=== PATIENT | male | born 1960 | race Caucasian/White ===

== ENCOUNTER 2020-01-18 | Emergency (ER) | payer MEDICARE | END 2020-01-18 22:26 | disposition home or self-care (01) ==

== ENCOUNTER 2020-05-20 16:23 | Observation (INO) | payer MEDICARE ==
[2020-05-20] MEDS ORDERED: SODIUM CHLORIDE 0.9% (FLUSH) 10 ML SYG IV PRN ×3 (16:46→22:33)
[2020-05-20] MEDS ORDERED: cefTRIAXone SODIUM 2 GM in SODIUM CHL 0.9% 100ML MINI-BAG 100 ML IVPB ONE (16:46)
[2020-05-20] MEDS ORDERED: SODIUM CHLORIDE 0.9% 1000ML 1,000 ML IVS ONE (16:46)
--- NOTE | 2020-05-20 16:56 | ED.PDOC ---
History of Present Illness - General Chief Complaint: General Stated Complaint: weakness Time Seen by Provider: 05/20/20 16:45 Source: patient, family Exam Limitations: no limitations - History of Present Illness Initial Comments: 59 y/o male c/o legs giving out on him twice today. He got groceries out of the car and then sat down in his house. After 30 min or so he got up and felt his legs giving way. He did not fall but when he tried to take a few more steps it happened again. He has a hx of hypertension but did not take his metoprolol this am. Denies fever, chest pain, or SOB. Timing/Duration: 1-3 hours Severity: moderate Improving Factors: rest Worsening Factors: movement Associated Symptoms: weakness Allergies/Adverse Reactions: Allergies Morphine Allergy (Verified 05/20/20 23:08) Penicillins Allergy (Verified 05/20/20 23:08) Home Medications: Ambulatory Orders Lisinopril 40 mg PO BID 01/18/20 HYDROcodone 10MG/APAP 325MG [[place] 10/325] 1 - 2 tab PO TID PRN 05/20/20 Metoprolol Succinate [Metoprolol Succinate ER] 100 mg PO BID 05/20/20 Quetiapine Fumarate 300 mg PO BEDTIME 05/20/20 Temazepam 30 mg PO BEDTIME 05/20/20 Review of Systems - Review of Systems Constitutional: States: no symptoms reported EENTM: States: no symptoms reported Respiratory: States: no symptoms reported Cardiology: States: no symptoms reported Gastrointestinal/Abdominal: States: no symptoms reported Genitourinary: States: no symptoms reported Musculoskeletal: States: no symptoms reported Skin: States: no symptoms reported Neurological: States: no symptoms reported, weakness Endocrine: States: no symptoms reported Hematologic/Lymphatic: States: no symptoms reported Past Medical History (General) - Patient Medical History Hx Seizures: No Hx Stroke: No Hx Asthma: No Hx of COPD: No Hx Cardiac Disorders: No Hx Congestive Heart Failure: No Hx Pacemaker: No Hx Hypertension: Yes Hx Diabetes: No Hx MRSA: No - Social History Hx Alcohol Use: Yes - 6 OZ LIQUOR 3 TIMES A WEEK Hx Substance Use: No Hx Physical Abuse: No Hx Emotional Abuse: No Family Medical History - Family History Father Family History: Unknown Physical Exam - Physical Exam General Appearance: Alert Eye Exam: bilateral normal Ears, Nose, Throat: normal ENT inspection Neck: non-tender, full range of motion, supple Respiratory: chest non-tender, lungs clear, normal breath sounds, no respiratory distress Cardiovascular/Chest: regular rate, rhythm, no murmur Gastrointestinal/Abdominal: normal bowel sounds, non tender, soft, no organomegaly Back Exam: normal inspection, no vertebral tenderness Extremity: normal range of motion, non-tender, no pedal edema 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, no motor/sensory deficits, alert, normal mood/affect, oriented x 3 Skin Exam: normal color, warm/dry Progress - EKG/XRAY/CT EKG: Sinus, no ST T wave changes Comments: Normal EKG Rate 86 Departure - Departure Clinical Impression: Severe sepsis Anemia Qualifiers: Anemia type: unspecified type Qualified Code(s): D64.9 - Anemia, unspecified Disposition: Admit Patient Condition: Fair Home Medications: Ambulatory Orders Lisinopril 40 mg PO BID 01/18/20 HYDROcodone 10MG/APAP 325MG [[place] 10/325] 1 - 2 tab PO TID PRN 05/20/20 Metoprolol Succinate [Metoprolol Succinate ER] 100 mg PO BID 05/20/20 Quetiapine Fumarate 300 mg PO BEDTIME 05/20/20 Temazepam 30 mg PO BEDTIME 05/20/20
--- NOTE | 2020-05-20 17:15 | RAD ---
EXAM DESCRIPTION: Chest,1 View CLINICAL HISTORY: 59 years Male hypotension COMPARISON: 01/18/2020 FINDINGS: The cardiomediastinal silhouette appears unremarkable. No consolidating infiltrates or pleural effusions. No pneumothorax. Previous ORIF of multiple ribs on the right similar to the previous. Mild elevation of the right hemidiaphragm. IMPRESSION: No acute abnormality is identified. Electronically signed by: Buffy Stiles MD 05/20/2020 5:14 PM CDT
[2020-05-20] MEDS ORDERED: SODIUM CHLORIDE 0.9% 1000ML 2,000 ML IVS ONE (18:12)
[2020-05-20] MEDS ORDERED: SODIUM CHLORIDE 0.9% 1000ML 1,000 ML IVS PRN (19:23)
[2020-05-20] MEDS ORDERED: ONDANSETRON INJ 4 MG/2 ML VIAL IV ONE (19:29)
[2020-05-20] MEDS ORDERED: MORPHINE SULFATE INJ 10 MG/ML VIAL IV ONE (19:29)
[2020-05-20] MEDS ORDERED: TETANUS,DIPHTHERIA,PERTUSSIS 1 EA SYG IM ONE (19:30)
[2020-05-20] MEDS ORDERED: ACETAMINOPHEN 325 MG TAB PO PRN (22:33)
[2020-05-20] MEDS ORDERED: ONDANSETRON INJ 4 MG/2 ML VIAL IV PRN (22:33)
[2020-05-20] MEDS ORDERED: KCL 20MEQ/0.45% NS 1,000 ML IVS ONE (22:45)
[2020-05-20] MEDS ORDERED: IV SET AND CAP CHANGE INJ INJ SCH (23:00)
[2020-05-20] MEDS ORDERED: NON-FORMULARY MEDICATION 1 EA MIS (Temazepam [Temazepam] 30 MG) PO SCH (23:24)
[2020-05-21] MEDS ORDERED: TEMAZEPAM 15 MG CAP ONE (00:44)
[2020-05-21] MEDS: HYDROcodone 10MG/APAP 325MG 1 EA TAB PO PRN ×2 (04:30→12:19)
[2020-05-21 06:52] VITALS: TEMP 98.2
[2020-05-21] MEDS ORDERED: PANTOPRAZOLE SODIUM TAB 40 MG PO SCH (07:00)
[2020-05-21 10:11] VITALS: BP 135/74; O2SAT 97
--- NOTE | 2020-05-21 10:32 | RAD ---
XR CHEST 1 VIEW CLINICAL STATEMENT: syncope COMPARISON: 05/20/2020 FINDINGS: Heart is mildly enlarged. There is no focal lung consolidation or pleural effusion. No evidence of pulmonary edema or pneumothorax. Right rib postsurgical changes noted. IMPRESSION: No acute cardiopulmonary disease. Electronically signed by: Deni Cota MD 05/21/2020 10:30 AM CDT
--- NOTE | 2020-05-21 10:44 | CT ---
Sex: Male. : 1960. Technique: Axial scans through the pelvis without intravenous contrast including multiplanar computer reformations. Total Dose Length Product: 546. This exam was performed according to our departmental dose-optimization program, which includes automated exposure control, adjustment of the mA and/or kV according to patient size and/or use of iterative reconstruction technique. Comparison studies: CT scan June 16, 2013. Clinical history: history of colon cancer and abdominal pain. Findings: Scan volume includes the lower abdomen. Visible portions of the liver and spleen, pancreas, adrenal glands and kidneys are unremarkable. No evidence for large bowel or small bowel dilatation or obstruction. There are small bowel air-fluid levels likely signifying the presence of an ileus or enteritis. A small bowel anastomosis seen on series 2 image 34. Correlate with the surgical history. There is pericecal and infracecal stranding extending down to the surface of the right psoas muscle indicating right lower quadrant inflammation. For example on series 2 images 18-35 and series 301 image 97. The appendix is not well visualized-correlate clinically if there is any concern for appendicitis. No evidence for mass or free fluid otherwise. No retroperitoneal adenopathy. There is a fat-containing 2.9 cm left inguinal hernia. 10 mm fat-containing periumbilical ventral hernia. Urinary bladder is unremarkable. No wall thickening. No intraluminal or intramural gas. The prostate is within normal limits and measures 4 cm. Normal seminal vesicles. No perirectal or perineal soft tissue abnormality. Degenerative spondylosis seen in the lower lumbar spine. There has been a lumbar laminectomy and fusion. The hip and sacroiliac joints are unremarkable. Impression: 1. Right lower quadrant inflammation. 2. Small bowel fluid levels potentially representing ileus or enteritis. Small bowel anastomosis is noted. No evidence for obstruction. 3. 2.9 cm left inguinal hernia and a 10 mm periumbilical hernia. 4. Atherosclerosis. Electronically signed by: Suman Hammer MD 05/21/2020 10:42 AM CDT
[2020-05-21] MEDS ORDERED: MAGNESIUM SULFATE PREMIX 2GM 2 GM in PREMIX BAG 1 BAG IVPB ONE (12:16)
[2020-05-21] MEDS ORDERED: MAGNESIUM SULFATE PREMIX 2GM 50 ML IVPB ONE (12:21)
--- NOTE | 2020-05-21 14:47 | SSS ---
SUPERVISING PHYSICIAN: Faheem Phillips M.D. DISCHARGE DIAGNOSES: 1. Dehydration with rigors. 2. Acute kidney injury. 3. Anemia. 4. Hypertension. 5. History of colon cancer. HISTORY OF PRESENT ILLNESS: This is a 59 year-old male patient who went to burr picker his ex- in [place] on 05/18/20. He drove out and came back, spent the night [place] one night. He had very little fluid intake and was in and out of the car and heat. When he got home to [place], he was trying to get out of his house and his legs gave out twice. He did not actually fall, but he was unable to walk due to the weakness in his lower extremities. He managed to get to his sister's care who brought him to the Emergency Room. In the Emergency Room, his initial vital signs showed a temperature of 97.3 with a heart rate of 90, blood pressure 63/37, respiratory rate 28 and O2 saturation of 97%. He was started on fluids and his lab studies came back showing a WBC of 6,700 with hemoglobin 11.1 and hematocrit 32.5. He did have a slight left shift on his differential. Coagulation studies were within normal limits, including a D- dimer of less than 131. Electrolytes were basically within normal limits. BUN was 21, creatinine 1.91, baseline creatinine is about 0.7. He did have a creatinine kinase of 215 but his other cardiac enzymes were negative. Liver enzymes were negative. Urinalysis was unremarkable. Blood cultures and urine culture were obtained. Chest x-ray showed no acute abnormality identified. He was given several liters of fluids in the Emergency Room as well as some Rocephin and Zofran. There was no temperature noted during his stay in the Emergency Room, but he was tested for COVID-19. Those results are pending. I was called for hospital admission. PAST MEDICAL HISTORY: 1. Hypertension. 2. Gastroesophageal reflux disease. 3. Colon cancer. PAST SURGICAL HISTORY: 1. Abdominal surgery times three for his colon cancer. 2. Left wrist surgery. 3. Appendectomy. OUTPATIENT MEDICATIONS: 1. Metoprolol. 2. Lisinopril. 3. Quetiapine. 4. Hydrocodone. 5. Restoril. ALLERGIES: MORPHINE AND PENICILLIN. SOCIAL HISTORY: He is . He lives in [place]. He denies smoking or illicit drug use. He drinks alcohol on a social basis only. REVIEW OF SYSTEMS: GENERAL: Negative for fatigue, fever or weight changes. HEENT: Negative for sinus symptoms, ear pain, vision changes or sore throat. RESPIRATORY: Negative for wheezing, coughing or shortness of breath. CARDIAC: Negative for chest pain, palpitations or tachycardia. GASTROINTESTINAL: Negative for abdominal pain, nausea, vomiting, diarrhea or constipation. GENITOURINARY: Negative for hematuria, dysuria or polyuria. SKIN: Negative for lesions or rashes. MUSCULOSKELETAL: As per the history of present illness. NEUROLOGIC: Positive for weakness. Negative for headaches or seizures. PHYSICAL EXAMINATION: VITAL SIGNS: Temperature 98.2, heart rate 88, blood pressure 135/74, respiratory rate 18, O2 saturation 97% on room air. GENERAL: This is a 59 year-old obese male lying in his hospital bed. He is in no acute distress. HEENT: Normocephalic, atraumatic. Pupils are equal and reactive. Oropharynx is clear. NECK: Supple without mass. RESPIRATORY: Essentially clear to auscultation bilaterally. CHEST: There is equal rise and fall of the chest with inspiration and expiration. CARDIOVASCULAR: Regular rate and rhythm. GASTROINTESTINAL: Abdomen is soft, nondistended, nontender. Bowel sounds are positive. EXTREMITIES: No cyanosis, clubbing or edema. BACK: Exam is deferred. GENITOURINARY: Deferred. NEUROLOGIC: Awake, alert and oriented times three. Cranial nerves II-XII are grossly intact as tested. SKIN: Warm and dry. FOLLOWUP LABORATORY: Show WBCs of 6,000 with hemoglobin and hematocrit of 10.6 and 31. Sodium 138, potassium 4, chloride 109, carbon dioxide 20, BUN 21, creatinine 1.35. Lactate in the Emergency Room was 3.5. After fluids it came down to 1.6. Calcium is 7.8, magnesium was 1.7. Liver enzymes were within normal limits. Blood cultures and urine culture are pending. Chest x-ray this morning showed no acute cardiopulmonary disease. Abdominal pelvis CT was obtained this morning due to his history and it shows: 1. Right lower quadrant inflammation. 2. Small bowel fluid level potentially representing ileus or enteritis. Small bowel anastomosis is noted. No evidence for obstruction. 3. 2.9 cm left inguinal hernia and a 10 mm periumbilical hernia. 4. Atherosclerosis. HOSPITAL COURSE: The patient received fluids overnight as well as some magnesium supplementation this morning. His home medications were restarted with the exception of his metoprolol and lisinopril. He was able to get up and walk around in his room without problems. He has denied any kind of abdominal pain or discomfort. We did discuss that he would need to see Dr. Medrano and maybe followup with his oncologist at some point due to his anemia. He also will need to followup with Dr. Medrano about his abdominal CT scan. He did say that he was to have a colonoscopy done by Dr. Medrano in the next 2 to 3 weeks. DISCHARGE PLAN: The patient will be discharged home in stable condition. As stated above, he will need to followup with Dr. Cheng Medrano and call his office on Friday for a followup appointment. It is recommended that he see his airport operations specialist for an anemia workup and that a further workup based on his CT exam results may be beneficial. He is to resume his previous medications. He will go home on no new additional medications. He is to increase his activity as tolerated. He is to return to the hospital or followup with Dr. Medrano for any problems or complications. DISCHARGED MEDICATIONS: 1. Lisinopril. 2. Quetiapine. 3. Metoprolol. 4. Temazepam. 5. Hydrocodone. #[id number] [facility]
[2020-05-21] MEDS ORDERED: SODIUM CHLORIDE 0.9% (FLUSH) 10 ML SYG IV SCH (21:00)
[2020-05-21] MEDS ORDERED: TEMAZEPAM 15 MG CAP PO SCH (21:00)
== END 2020-05-21 13:55 | disposition home or self-care (01) ==
LOC: ER 16:23 → MS 22:27
PROVIDERS: ADMIT Nurse Practitioner Acute Care; ATTEND Nurse Practitioner Acute Care
DX: E86.0 Dehydration (principal); R68.89 Other general symptoms and signs; N17.9 Acute kidney failure, unspecified; D64.9 Anemia, unspecified; I10 Essential (primary) hypertension; R53.1 Weakness; Z11.59 Encounter for screening for other viral diseases; Z79.899 Other long term (current) drug therapy; Z88.0 Allergy status to penicillin; Z88.6 Allergy status to analgesic agent; Z85.038 Personal history of other malignant neoplasm of large intestine
CPT/HCPCS: 96361; 96366 ×2; 96367 ×2; 96365; J0696; J7030 ×2; A4216; J3475; J3480; J7050; 85379; 82553; 80053 ×2; 87086; 36415 ×3; 81001 ×2; 85025 ×2; 82550; 87040 ×2; 83735; 85730; 85610; 84484; 83605 ×2; 71045 ×2; 72192; 94760; 99285; 93005 ×2; G0378; U0002

== ENCOUNTER 2020-05-22 11:59 | Emergency (ER) | payer MEDICARE ==
[2020-05-22] MEDS ORDERED: levoFLOXacin 500 MG TAB PO ONE (14:56)
--- NOTE | 2020-05-22 14:59 | ED.PDOC ---
History of Present Illness - General Chief Complaint: General Time Seen by Provider: 05/22/20 12:06 Source: patient Exam Limitations: no limitations - History of Present Illness Initial Comments: The patient is a 59-year-old male presented emergency room secondary to feeling like his heart rate was going too fast morning. The patient reports that initially when he woke up he had a blood pressure in the systolic and in the 90s and his blood pressure machine reported his heart rate in the 140s. The patient was recently admitted for hypotension with acute renal failure from dehydration. He apparently tested negative on our in-house system for coronavirus. The patient is currently feeling fine. His temperature is mildly elevated at 100.3. He denies coronavirus exposure. No abdominal pain. No nausea or vomiting. The patient did restart his blood pressure medications this morning. Timing/Duration: momentarily Severity: mild Improving Factors: nothing Worsening Factors: nothing Associated Symptoms: malaise Allergies/Adverse Reactions: Allergies Morphine Allergy (Verified 05/20/20 23:08) Penicillins Allergy (Verified 05/20/20 23:08) Home Medications: Ambulatory Orders Lisinopril 40 mg PO BID 01/18/20 HYDROcodone 10MG/APAP 325MG [[place] 10/325] 1 - 2 tab PO TID PRN 05/20/20 Metoprolol Succinate [Metoprolol Succinate ER] 100 mg PO BID 05/20/20 Quetiapine Fumarate 300 mg PO BEDTIME 05/20/20 Temazepam 30 mg PO BEDTIME 05/20/20 levoFLOXacin [Levaquin] 500 mg PO DAILY #5 tab 05/22/20 Review of Systems - Review of Systems Constitutional: States: malaise EENTM: States: no symptoms reported Respiratory: States: no symptoms reported Cardiology: States: no symptoms reported Gastrointestinal/Abdominal: States: no symptoms reported Genitourinary: States: no symptoms reported Musculoskeletal: States: no symptoms reported Skin: States: no symptoms reported Neurological: States: no symptoms reported Endocrine: States: flushing Hematologic/Lymphatic: States: no symptoms reported All other Systems: No Change from Baseline Past Medical History (General) - Patient Medical History Hx Seizures: No Hx Stroke: No Hx Asthma: No Hx of COPD: No Hx Cardiac Disorders: No Hx Congestive Heart Failure: No Hx Pacemaker: No Hx Hypertension: Yes Hx Diabetes: No Hx Cancer: Yes Hx Hepatitis C: No Hx MRSA: No - Vaccination History Hx Influenza Vaccination: Yes - Social History Hx Tobacco Use: No Hx Alcohol Use: Yes - 6 OZ LIQUOR 3 TIMES A WEEK Hx Substance Use: No Hx Physical Abuse: No Hx Emotional Abuse: No Family Medical History - Family History Father Family History: Unknown Hx Family;Other: mother and father - cancer Physical Exam - Physical Exam General Appearance: Alert, Comfortable, No apparent distress Eye Exam: bilateral normal Ears, Nose, Throat: hearing grossly normal, normal ENT inspection Neck: full range of motion, supple Respiratory: lungs clear, normal breath sounds, no respiratory distress, no accessory muscle use Cardiovascular/Chest: normal peripheral pulses, regular rate, rhythm, no edema Peripheral Pulses: radial,right: 2+, radial,left: 2+ Gastrointestinal/Abdominal: non tender, soft Rectal Exam: deferred Back Exam: no CVA tenderness, no vertebral tenderness Extremity: non-tender, normal inspection, no pedal edema, normal capillary refill 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 The patient may need to obtain a new blood pressure cuff. Also obtaining a pulse oximeter may be useful. The patient has been monitored on telemetry monitoring here and has shown no evidence of any arrhythmia and no evidence of any hypotension here today. Given the patient's recent history however, I would recommend that the patient hold his lisinopril for 2 weeks. He can continue the metoprolol for now. Given the mild temperature elevation here as well as a CT scan findings of mild right lower quadrant inflammation from 2 days ago, I am going to place the patient on Levaquin daily for the next 5 days. He needs to keep himself well- hydrated. I do want him to follow back up with his primary care doctor in 2 to 3 days. ER warnings are given. [email or web address] massey [id number] - Results/Orders Results/Orders: Laboratory Tests 0705/22/20 05/22/20 13:30 13:30 13:30 WBC 5.0 RBC 3.45 L Hgb 10.4 L Hct 30.9 L MCV 89.6 MCH 30.1 MCHC 33.6 RDW 15.6 H Plt Count 180 MPV 8.6 Absolute Neuts (auto) 3.40 Absolute Lymphs (auto) 0.80 L Absolute Monos (auto) 0.40 Absolute Eos (auto) 0.20 Absolute Basos (auto) 0.10 Neutrophils % 68.9 Lymphocytes % 16.4 L Monocytes % 8.4 Eosinophils % 4.7 Basophils % 1.6 Sodium 137 Potassium 3.8 Chloride 109 Carbon Dioxide 22 Anion Gap 9.8 L BUN 14 Creatinine 0.91 BUN/Creatinine Ratio 15.4 Random Glucose 137 H D Serum Osmolality 276.4 Lactic Acid 0.9 Calcium 8.2 L Total Bilirubin 0.6 AST 22 ALT 21 Alkaline Phosphatase 55 Creatine Kinase 157 CK-MB (CK-2) 2.8 CK-MB (CK-2) % Not Reportable Troponin I < 0.02 B-Natriuretic Peptide 41.4 Serum Total Protein 6.4 Albumin 3.3 Globulin 3.1 Albumin/Globulin Ratio 1.1 TSH 1.54 Departure - Departure Clinical Impression: Hypotension due to medication Disposition: Discharge to Home or Self Care Condition: Fair Departure Forms: ED Discharge - Pt. Copy, Patient Portal Self Enrollment Diet: bland diet Activity: increase activity as tolerated Referrals: JOCELIN CRAIG [Primary Care Provider] - 1-2 Weeks Prescriptions: levoFLOXacin [Levaquin] 500 mg PO DAILY #5 tab Home Medications: Ambulatory Orders Lisinopril 40 mg PO BID 01/18/20 HYDROcodone 10MG/APAP 325MG [[place] 10/325] 1 - 2 tab PO TID PRN 05/20/20 Metoprolol Succinate [Metoprolol Succinate ER] 100 mg PO BID 05/20/20 Quetiapine Fumarate 300 mg PO BEDTIME 05/20/20 Temazepam 30 mg PO BEDTIME 05/20/20 levoFLOXacin [Levaquin] 500 mg PO DAILY #5 tab 05/22/20 Additional Instructions: The patient is a 59-year-old male presented emergency room secondary to a questionable set of vital signs obtained this morning. The patient may need to obtain a new blood pressure cuff. Also obtaining a pulse oximeter may be useful. The patient has been monitored on telemetry monitoring here and has shown no evidence of any arrhythmia and no evidence of any hypotension here today. Given the patient's recent history however, I would recommend that the patient hold his lisinopril for 2 weeks. He can continue the metoprolol for now. Given the mild temperature elevation here as well as a CT scan findings of mild right lower quadrant inflammation from 2 days ago, I am going to place the patient on Levaquin daily for the next 5 days. He needs to keep himself well- hydrated. I do want him to follow back up with his primary care doctor in 2 to 3 days. ER warnings are given.
[2020-05-22 15:46] VITALS: TEMP 100.1; O2SAT 97
[2020-05-22 15:48] VITALS: BP 118/76
== END 2020-05-22 15:25 | disposition home or self-care (01) ==
LOC: ER 11:59
DX: I95.2 Hypotension due to drugs (principal); I10 Essential (primary) hypertension; T46.4X5A Adverse effect of angiotensin-converting-enzyme inhibitors, initial encounter; Y92.9 Unspecified place or not applicable

== ENCOUNTER 2020-05-29 11:56 | Emergency (ER) | payer MEDICARE ==
--- NOTE | 2020-05-29 12:17 | ED.PDOC ---
History of Present Illness - General Chief Complaint: Chest Pain/CT Stated Complaint: chest pain Time Seen by Provider: 05/29/20 12:00 Source: patient Exam Limitations: no limitations - History of Present Illness Initial Comments: The patient is a 59-year-old male presented emergency room secondary to concern over elevated blood pressure this morning. The patient recording his blood pressures with a wrist cuff. He was feeling fine when he took his blood pressure this morning but became anxious when he gave a high reading. More anxious he got, the higher the readings were in the more short of breath he felt. The patient is anxious upon arrival here however upon seeing a normal blood pressure here he is no longer short of breath. On comparing his blood pressure cuff to our blood pressure cuff, his cuff is measuring 40-50 points higher than what is real. The patient is asymptomatic at this time. Timing/Duration: 4-6 hours Severity: mild Improving Factors: nothing Worsening Factors: nothing Associated Symptoms: shortness of breath Allergies/Adverse Reactions: Allergies Morphine Allergy (Verified 05/20/20 23:08) Penicillins Allergy (Verified 05/20/20 23:08) Home Medications: Ambulatory Orders Lisinopril 40 mg PO BID 01/18/20 HYDROcodone 10MG/APAP 325MG [[place] 10/325] 1 - 2 tab PO TID PRN 05/20/20 Metoprolol Succinate [Metoprolol Succinate ER] 100 mg PO BID 05/20/20 Quetiapine Fumarate 300 mg PO BEDTIME 05/20/20 Temazepam 30 mg PO BEDTIME 05/20/20 levoFLOXacin [Levaquin] 500 mg PO DAILY #5 tab 05/22/20 Review of Systems - Review of Systems Constitutional: States: no symptoms reported EENTM: States: no symptoms reported Respiratory: States: see HPI Cardiology: States: no symptoms reported Gastrointestinal/Abdominal: States: no symptoms reported Genitourinary: States: no symptoms reported Musculoskeletal: States: no symptoms reported Skin: States: no symptoms reported Neurological: States: see HPI, anxiety Endocrine: States: no symptoms reported All other Systems: No Change from Baseline Past Medical History (General) - Patient Medical History Hx Seizures: No Hx Stroke: No Hx Asthma: No Hx of COPD: No Hx Cardiac Disorders: No Hx Congestive Heart Failure: No Hx Pacemaker: No Hx Hypertension: Yes Hx Diabetes: No Hx Cancer: Yes Hx Hepatitis C: No Hx MRSA: No - Vaccination History Hx Influenza Vaccination: Yes - Social History Hx Tobacco Use: No Hx Alcohol Use: Yes - 6 OZ LIQUOR 3 TIMES A WEEK Hx Substance Use: No Hx Physical Abuse: No Hx Emotional Abuse: No Family Medical History - Family History Father Family History: Unknown Hx Family;Other: mother and father - cancer Physical Exam - Physical Exam General Appearance: Alert, Anxious, No apparent distress Ears, Nose, Throat: hearing grossly normal, normal pharynx Neck: non-tender, supple Respiratory: lungs clear, normal breath sounds, no respiratory distress, no accessory muscle use Cardiovascular/Chest: normal peripheral pulses, regular rate, rhythm, no edema Peripheral Pulses: radial,right: 2+, radial,left: 2+ Gastrointestinal/Abdominal: non tender, soft Rectal Exam: deferred Back Exam: no CVA tenderness, no vertebral tenderness Extremity: normal range of motion, non-tender, normal inspection, no pedal edema, normal capillary refill 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 Normal axis. Normal QT interval. Normal R wave progression. No definitive ST segment or T wave changes indicative of acute ischemia. Assessment and plan: The patient is a 59-year-old male presented emergency room secondary to anxiety over a elevated blood pressure reading at home. His blood pressure cuff is reading 40-50 points too high on the systolic end. The patient needs to obtain a new blood pressure cuff that measures around his upper arm and he needs at least a large were extra large cuff. He needs to record these numbers twice daily and take them back to his primary care doctor. EKG was reassuring. Blood pressures are currently normal. The patient is feeling better. Follow-up with primary care doctor later this week or early next week. aubree massey 216 Departure - Departure Clinical Impression: Anxiety about health Disposition: Discharge to Home or Self Care Condition: Fair Departure Forms: ED Discharge - Pt. Copy, Patient Portal Self Enrollment Diet: low salt diet Activity: increase activity as tolerated Referrals: JOCELIN CRAIG [Primary Care Provider] - 1-2 Weeks Home Medications: Ambulatory Orders Lisinopril 40 mg PO BID 01/18/20 HYDROcodone 10MG/APAP 325MG [[place] ] 1 - 2 tab PO TID PRN 05/20/20 Metoprolol Succinate [Metoprolol Succinate ER] 100 mg PO BID 05/20/20 Quetiapine Fumarate 300 mg PO BEDTIME 05/20/20 Temazepam 30 mg PO BEDTIME 05/20/20 levoFLOXacin [Levaquin] 500 mg PO DAILY #5 tab 05/22/20 Additional Instructions: The patient is a 59-year-old male presented emergency room secondary to anxiety over a elevated blood pressure reading at home. His blood pressure cuff is reading 40-50 points too high on the systolic end. The patient needs to obtain a new blood pressure cuff that measures around his upper arm and he needs at least a large were extra large cuff. He needs to record these numbers twice daily and take them back to his primary care doctor. EKG was reassuring. Blood pressures are currently normal. The patient is feeling better. Follow- up with primary care doctor later this week or early next week.
[2020-05-29 12:39] VITALS: BP 110/69; TEMP 99.2; O2SAT 95
== END 2020-05-29 12:35 | disposition home or self-care (01) ==
LOC: ER 11:56
DX: F41.9 Anxiety disorder, unspecified (principal); I10 Essential (primary) hypertension; R07.9 Chest pain, unspecified; Z79.899 Other long term (current) drug therapy

== ENCOUNTER 2020-08-26 15:59 | Observation (INO) | payer MEDICARE ==
[2020-08-26] MEDS ORDERED: MEROPENEM 1 GM in SODIUM CHL 0.9% 50ML MIN-BAG+ 50 ML IVPB ONE (16:21)
[2020-08-26] MEDS ORDERED: SODIUM CHLORIDE 0.9% 1000ML 1,000 ML IVS ONE ×2 (16:21→18:16)
[2020-08-26] MEDS ORDERED: SODIUM CHLORIDE 0.9% (FLUSH) 10 ML SYG IV PRN ×2 (16:21→22:42)
[2020-08-26] MEDS ORDERED: fentaNYL CITRATE INJ 50 MCG/ML 2 ML AMP IV ONE (16:21)
[2020-08-26] MEDS ORDERED: ONDANSETRON INJ 4 MG/2 ML VIAL IV ONE (16:31)
--- NOTE | 2020-08-26 16:33 | ED.PDOC ---
History of Present Illness - General Chief Complaint: Syncope/Near Syncope Stated Complaint: Dizziness Time Seen by Provider: 08/26/20 16:11 Source: patient, RN notes reviewed, Vital Signs reviewed, family Exam Limitations: no limitations - History of Present Illness Initial Comments: This is a 59-year-old male presenting to the emergency department for dizziness, generalized weakness that began this morning and got worse this afternoon when he stood up from a chair. he denies any syncope. He denies any fever. He denies shortness of breath. He denies any leg swelling. He is 3 days postop from a revision surgery to repair an old right humerus fracture. This was performed at [facility]. He states the surgery went on without any complications. He was discharged in the hospital yesterday. He is currently taking aspirin, no other blood thinners. He denies any new swelling or fevers. He had a negative Covid test 4 days ago, denies any known Covid contacts in the interim. Allergies/Adverse Reactions: Allergies Morphine Allergy (Verified 05/29/20 12:14) Penicillins Allergy (Verified 05/29/20 12:14) Home Medications: Ambulatory Orders Lisinopril 40 mg PO BID 01/18/20 HYDROcodone 10MG/APAP 325MG [[place] 10/325] 1 - 2 tab PO TID PRN 05/20/20 Metoprolol Succinate [Metoprolol Succinate ER] 100 mg PO BID 05/20/20 Quetiapine Fumarate 300 mg PO BEDTIME 05/20/20 Temazepam 30 mg PO BEDTIME 05/20/20 Review of Systems - Review of Systems Constitutional: Denies: chills, fever EENTM: Denies: ear pain, nose pain, nose congestion, throat pain, throat swelling Respiratory: Denies: cough, orthopnea, short of breath, wheezing Cardiology: Denies: chest pain, edema, syncope Gastrointestinal/Abdominal: Denies: abdominal pain, diarrhea, nausea, vomiting Musculoskeletal: States: joint pain, joint swelling. Denies: back pain, muscle pain, muscle stiffness, neck pain Skin: Denies: change in color, dryness, rash Neurological: States: paresthesia, tingling, other - Dizziness. Denies: d epressed, headache Endocrine: States: no symptoms reported Past Medical History (General) - Patient Medical History Hx Seizures: No Hx Stroke: No Hx Asthma: No Hx of COPD: No Hx Cardiac Disorders: No Hx Congestive Heart Failure: No Hx Pacemaker: No Hx Hypertension: Yes Hx Diabetes: No Hx Cancer: Yes Hx Hepatitis C: No Hx MRSA: No - Vaccination History Hx Influenza Vaccination: Yes - Social History Hx Tobacco Use: No Hx Alcohol Use: Yes - 6 OZ LIQUOR 3 TIMES A WEEK Hx Substance Use: No Hx Physical Abuse: No Hx Emotional Abuse: No Family Medical History - Family History Father Family History: Unknown Hx Family;Other: mother and father - cancer Mother Hx Cardiac Disease: Yes Hx Family Cancer: Yes Physical Exam - Physical Exam General Appearance: Alert, Comfortable Ears, Nose, Throat: normal ENT inspection, normal pharynx Neck: non-tender, full range of motion, supple Respiratory: lungs clear, normal breath sounds, no respiratory distress, no accessory muscle use Cardiovascular/Chest: no gallop, no JVD, no murmur, tachycardia Gastrointestinal/Abdominal: non tender, soft, no organomegaly Back Exam: normal inspection, no CVA tenderness, no vertebral tenderness Extremity: other - There is a well-healing surgical incision to the right vee ulder with sutures in place. There is no surrounding erythema. There is swelling of the right humerus and shoulder area that appears to be appropriate for the surgical procedure. 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 He denies any extra doses of his pain medication. He did take his lisinopril today as scheduled 08/26/20 20:26 Discussed with BETSY Swartz instructional coordinator for Dr. Vaishnavi Mcnamara. Discussed lab findings, x-ray and CT findings. Agrees his symptoms are likely medication related, unlikely to be postop complication. Agrees with plan for admission here. No indication for transfer. 08/26/20 20:38 Discussed with Angelina Gipson NP. Agrees with plan for observation. At this time I suspect his hypotension is likely related to medications, likely combination of his blood pressure medication, muscle relaxant and opiates. After completion of the work-up, my suspicion for sepsis at this time is low DDx: Sepsis, hemorrhage, PE, postop infection, pneumonia, UTI MDM: Patient presenting with transient episode of hypotension, tachycardia. Patient is 2 days postop from total right shoulder replacement. He was admitted in May 2020 for similar presentation it was attributed to medications. I suspect today's episode is likely multifactorial, related to his pain medication, his muscle relaxants, and his lisinopril. He denies taking any extra doses of his hydrocodone today, but states that he did take an extra dose of his muscle relaxant. His blood pressure improved with IV fluids. He has no leukocytosis, normal lactates, no clear infectious sources. his wound appears to be healing appropriately. Will place in observation to monitor his blood pressure, give IV fluids, and adjust medication regimen. Clarence Monroy DO [facility] # [id number] - Results/Orders Results/Orders: EXAM DESCRIPTION: Chest,1 View CLINICAL HISTORY: 59 years Male dizziness, hypotension, recent shoulder surgery COMPARISON: 05/21/2020 FINDINGS: Stable cardiac size and mediastinal contour. Poor depth of inspiration. Numerous previous rib fractures transfixed by malleable plate and screws. Elevation of the right hemidiaphragm atelectasis the lung base. Prosthetic shoulder on the right. IMPRESSION: Poor depth of inspiration with atelectasis in the right lung base Electronically signed by: Buffy Stiles MD 08/26/2020 5:35 PM EXAM DESCRIPTION: Shoulder,Right 2 or More Views CLINICAL HISTORY: 59 years Male possible sepsis, recent revision shoulder surgery COMPARISON: None. TECHNIQUE: Three views of the right shoulder. FINDINGS: There are changes from recent reverse shoulder arthroplasty. The surgical hardware appears intact. There are skin gordo visualized with gas in the soft tissues around the area of the right shoulder which is likely postsurgical. Changes from infection with a gas-forming organism cannot be totally excluded. No acute osseous abnormality is identified. There are surgical fixation plates along multiple right ribs from previous fracture repair. IMPRESSION: There are postsurgical changes from recent right shoulder arthroplasty. There is gas in the soft tissues around the right shoulder presumably postsurgical but changes from infection with a gas-forming organism are not totally excluded. Electronically signed by: Vasile Stiles MD 08/26/2020 5:36 PM CDT EXAM DESCRIPTION: CTA Chest 08/26/2020 7:53 PM CDT CLINICAL HISTORY: 59 years, Male, 3d s/p surgery, hypotensive, tachycardic, hypoxia COMPARISON: Previous chest x-ray performed 08/26/2020 PROCEDURE: Multiple transaxial tomograms of the chest were obtained from the lung apices through the lung bases utilizing 2.5 mm slice thickness at 2.5 mm interval reconstruction after the administration large bolus of IV contrast complete opacification of the pulmonary arteries and thoracic aorta. Subsequent maximum intensity projection images were generated in the coronal and sagittal plane for review. An individualized dose optimization technique, Automated Exposure Control, was utilized for the performed procedure. FINDINGS: The study is severely compromised due to right shoulder arthroplasty, metallic artifact is from previous right ribs plate fixation device, bilateral upper extremities on the field of imaging as well as time off opacification of the pulmonary arteries. The lungs parenchyma demonstrate minimal dependent atelectatic changes/scarring right lung base. No significant masses and/or nodules are identified. The presence of a right shoulder arthroplasty upper chest, prior ORIF/fixation of the right ribs also limits evaluation. Grossly the trachea mainstem bronchus demonstrate to be normal. There is no significant pericardial or pleural effusions. Aorta demonstrate to be within normal limits. There is no evidence for significant thoracic aortic dissection. There is minimal aortic valvular calcification. The heart is normal in size. No evidence for right ventricular strain. There is no significant mediastinal and/or hilar lymphadenopathy. The axillary regions demonstrate to be clear. Clips within the right lower lateral axillary area perhaps just lymph node dissection. Mainly the central pulmonary arteries demonstrate to be normal, no significant central intraluminal defect are seen that would suggest large pulmonary embolus, the secondary and tertiary segments of the pulmonary arteries are suboptimal evaluation although no significant major areas of abnormalities could be seen. The bone windows demonstrate prior ORIF of right RIBS with plate fixation device. Old right rib fractures findings most likely related to prior right chest injury. The visualized portions of the upper abdomen demonstrate to be unremarkable. IMPRESSION: SEVERELY COMPROMISED STUDY DUE TO RIGHT SHOULDER ARTHROPLASTY, METALLIC ARTIFACT FROM ORIF OF RIGHT RIBS, BILATERAL UPPER EXTREMITIES IN THE FIELD OF IMAGING CREATING STREAK ARTIFACT WELL SUBOPTIMAL OPACIFICATION OF THE PULMONARY ARTERIES. NO THORACIC AORTIC DISSECTION. NO SIGNIFICANT MAJOR PULMONARY EMBOLUS ALONG THE MAIN PULMONARY ARTERIES. MINIMAL DEPENDENT ATELECTATIC CHANGES LUNG BASES. 08/26/20 16:21 Sodium Chloride 0.9% (Flush) [Saline Flush Syringe] 10 ml IV PRN PRN EKG Stat Pulse Ox Stat 08/26/20 17:05 BLOOD CULTURE Stat 08/26/20 20:39 ED Intent to Admit Routine 08/26/20 22:44 URINE CULTURE W/COLONY COUNT Stat Laboratory Results - last 24 hr 08/26/20 08/26/20 08/26/20 17:05 17:05 17:05 WBC 6.5 RBC 3.54 L Hgb 10.5 L Hct 30.8 L MCV 87.1 MCH 29.6 MCHC 34.0 RDW 16.7 H Plt Count 223 MPV 8.6 Absolute Neuts (auto) 5.20 Absolute Lymphs (auto) 0.80 L Absolute Monos (auto) 0.40 Absolute Eos (auto) 0.10 Absolute Basos (auto) 0.00 Neutrophils % 79.4 H Lymphocytes % 11.6 L Monocytes % 6.4 Eosinophils % 2.2 Basophils % 0.4 PT 10.2 INR 1.03 PTT (SP) 32.0 H Sodium 134 L Potassium 3.4 L Chloride 98 L Carbon Dioxide 24 Anion Gap 15.4 BUN 28 H Creatinine 1.76 H BUN/Creatinine Ratio 15.9 Random Glucose 131 H Serum Osmolality 275.5 Lactic Acid Calcium 8.2 L Total Bilirubin 1.0 AST 50 H ALT 44 Alkaline Phosphatase 67 Creatine Kinase 612 H* CK-MB (CK-2) 4.6 H* CK-MB (CK-2) % 0.75 Troponin I 0.02 Serum Total Protein 7.2 Albumin 3.0 L Globulin 4.2 H Albumin/Globulin Ratio 0.7 L Urine Color Urine Appearance Urine pH Ur Specific [place] Urine Protein Urine Glucose (UA) Urine Ketones Urine Blood Urine Nitrite Urine Bilirubin Urine Urobilinogen Ur Leukocyte Esterase Urine RBC Urine WBC Ur Epithelial Cells Amorphous Sediment Urine Bacteria Urine Mucus SARS Serology 08/26/20 08/26/20 08/26/20 17:05 17:25 18:55 WBC RBC Hgb Hct MCV MCH MCHC RDW Plt Count MPV Absolute Neuts (auto) Absolute Lymphs (auto) Absolute Monos (auto) Absolute Eos (auto) Absolute Basos (auto) Neutrophils % Lymphocytes % Monocytes % Eosinophils % Basophils % PT INR PTT (SP) Sodium Potassium Chloride Carbon Dioxide Anion Gap BUN Creatinine BUN/Creatinine Ratio Random Glucose Serum Osmolality Lactic Acid 1.5 1.5 Calcium Total Bilirubin AST ALT Alkaline Phosphatase Creatine Kinase CK-MB (CK-2) CK-MB (CK-2) % Troponin I Serum Total Protein Albumin Globulin Albumin/Globulin Ratio Urine Color Urine Appearance Urine pH Ur Specific [place] Urine Protein Urine Glucose (UA) Urine Ketones Urine Blood Urine Nitrite Urine Bilirubin Urine Urobilinogen Ur Leukocyte Esterase Urine RBC Urine WBC Ur Epithelial Cells Amorphous Sediment Urine Bacteria Urine Mucus SARS Serology 0.300 L 08/26/20 19:58 WBC RBC Hgb Hct MCV MCH MCHC RDW Plt Count MPV Absolute Neuts (auto) Absolute Lymphs (auto) Absolute Monos (auto) Absolute Eos (auto) Absolute Basos (auto) Neutrophils % Lymphocytes % Monocytes % Eosinophils % Basophils % PT INR PTT (SP) Sodium Potassium Chloride Carbon Dioxide Anion Gap BUN Creatinine BUN/Creatinine Ratio Random Glucose Serum Osmolality Lactic Acid Calcium Total Bilirubin AST ALT Alkaline Phosphatase Creatine Kinase CK-MB (CK-2) CK-MB (CK-2) % Troponin I Serum Total Protein Albumin Globulin Albumin/Globulin Ratio Urine Color Yellow Urine Appearance Clear Urine pH 5.5 Ur Specific [place] 1.010 Urine Protein Negative Urine Glucose (UA) Negative Urine Ketones Negative Urine Blood Trace-lysed H Urine Nitrite Negative Urine Bilirubin Negative Urine Urobilinogen 0.2 Ur Leukocyte Esterase Negative Urine RBC 0-1 Urine WBC 0 Ur Epithelial Cells 0-1 Amorphous Sediment 4+ Urine Bacteria 0 Urine Mucus Moderate SARS Serology Departure - Departure Clinical Impression: Near syncope, Transient hypotension S/P shoulder joint replacement Qualifiers: Laterality: right Qualified Code(s): Z96.611 - Presence of right artificial shoulder joint Disposition: Admit Patient Condition: Fair Home Medications: Ambulatory Orders Lisinopril 40 mg PO BID 01/18/20 HYDROcodone 10MG/APAP 325MG [[place] 10/325] 1 - 2 tab PO TID PRN 05/20/20 Metoprolol Succinate [Metoprolol Succinate ER] 100 mg PO BID 05/20/20 Quetiapine Fumarate 300 mg PO BEDTIME 05/20/20 Temazepam 30 mg PO BEDTIME 05/20/20 Critical Care Note - Critical Care Note Total Time (mins): 36 Comments: Patient had vital signs concerning for circulatory failure, sepsis, shock. Initially hypotensive at 80s over 60s, this improved with IV fluids. Time was spent in examination of the patient, reviewing imaging, reviewing old records, reevaluation and rechecks of patient and family, as well as discussions with consultants and his surgeon.This was independent of any billable procedures or teaching time.
--- NOTE | 2020-08-26 17:37 | RAD ---
EXAM DESCRIPTION: Chest,1 View CLINICAL HISTORY: 59 years Male dizziness, hypotension, recent shoulder surgery COMPARISON: 05/21/2020 FINDINGS: Stable cardiac size and mediastinal contour. Poor depth of inspiration. Numerous previous rib fractures transfixed by malleable plate and screws. Elevation of the right hemidiaphragm atelectasis the lung base. Prosthetic shoulder on the right. IMPRESSION: Poor depth of inspiration with atelectasis in the right lung base Electronically signed by: Buffy Stiles MD 08/26/2020 5:35 PM CDT
--- NOTE | 2020-08-26 17:38 | RAD ---
EXAM DESCRIPTION: Shoulder,Right 2 or More Views CLINICAL HISTORY: 59 years Male possible sepsis, recent revision shoulder surgery COMPARISON: None. TECHNIQUE: Three views of the right shoulder. FINDINGS: There are changes from recent reverse shoulder arthroplasty. The surgical hardware appears intact. There are skin gordo visualized with gas in the soft tissues around the area of the right shoulder which is likely postsurgical. Changes from infection with a gas-forming organism cannot be totally excluded. No acute osseous abnormality is identified. There are surgical fixation plates along multiple right ribs from previous fracture repair. IMPRESSION: There are postsurgical changes from recent right shoulder arthroplasty. There is gas in the soft tissues around the right shoulder presumably postsurgical but changes from infection with a gas-forming organism are not totally excluded. Electronically signed by: Vasile Stiles MD 08/26/2020 5:36 PM CDT
[2020-08-26] MEDS ORDERED: MORPHINE SULFATE INJ 10 MG/ML VIAL IV ONE (19:04)
[2020-08-26] MEDS ORDERED: HYDROmorphone HCL INJ 2 MG/ML VIAL IV ONE (19:05)
--- NOTE | 2020-08-26 20:01 | CT ---
EXAM DESCRIPTION: CTA Chest 08/26/2020 7:53 PM CDT CLINICAL HISTORY: 59 years, Male, 3d s/p surgery, hypotensive, tachycardic, hypoxia COMPARISON: Previous chest x-ray performed 08/26/2020 PROCEDURE: Multiple transaxial tomograms of the chest were obtained from the lung apices through the lung bases utilizing 2.5 mm slice thickness at 2.5 mm interval reconstruction after the administration large bolus of IV contrast complete opacification of the pulmonary arteries and thoracic aorta. Subsequent maximum intensity projection images were generated in the coronal and sagittal plane for review. An individualized dose optimization technique, Automated Exposure Control, was utilized for the performed procedure. FINDINGS: The study is severely compromised due to right shoulder arthroplasty, metallic artifact is from previous right ribs plate fixation device, bilateral upper extremities on the field of imaging as well as time off opacification of the pulmonary arteries. The lungs parenchyma demonstrate minimal dependent atelectatic changes/scarring right lung base. No significant masses and/or nodules are identified. The presence of a right shoulder arthroplasty upper chest, prior ORIF/fixation of the right ribs also limits evaluation. Grossly the trachea mainstem bronchus demonstrate to be normal. There is no significant pericardial or pleural effusions. Aorta demonstrate to be within normal limits. There is no evidence for significant thoracic aortic dissection. There is minimal aortic valvular calcification. The heart is normal in size. No evidence for right ventricular strain. There is no significant mediastinal and/or hilar lymphadenopathy. The axillary regions demonstrate to be clear. Clips within the right lower lateral axillary area perhaps just lymph node dissection. Mainly the central pulmonary arteries demonstrate to be normal, no significant central intraluminal defect are seen that would suggest large pulmonary embolus, the secondary and tertiary segments of the pulmonary arteries are suboptimal evaluation although no significant major areas of abnormalities could be seen. The bone windows demonstrate prior ORIF of right RIBS with plate fixation device. Old right rib fractures findings most likely related to prior right chest injury. The visualized portions of the upper abdomen demonstrate to be unremarkable. IMPRESSION: SEVERELY COMPROMISED STUDY DUE TO RIGHT SHOULDER ARTHROPLASTY, METALLIC ARTIFACT FROM ORIF OF RIGHT RIBS, BILATERAL UPPER EXTREMITIES IN THE FIELD OF IMAGING CREATING STREAK ARTIFACT WELL SUBOPTIMAL OPACIFICATION OF THE PULMONARY ARTERIES. NO THORACIC AORTIC DISSECTION. NO SIGNIFICANT MAJOR PULMONARY EMBOLUS ALONG THE MAIN PULMONARY ARTERIES. MINIMAL DEPENDENT ATELECTATIC CHANGES LUNG BASES. Electronically signed by: Guillermo Tolbert MD 08/26/2020 7:59 PM CDT
--- NOTE | 2020-08-26 22:08 | HP ---
SUPERVISING PHYSICIAN: Vincent Roe MD CHIEF COMPLAINT: Near syncopal episode. HISTORY OF PRESENT ILLNESS: This is a 59 year-old male patient who came to the emergency room due to dizziness and generalized weakness that began the morning prior to his arrival at the Emergency Room. He said he stood up from a chair and nearly collapsed. He did not lose consciousness. There have no complaints of any fever or shortness of breath. He had actually had a surgical revision of his right humerus at [facility] and released 2 days after surgery. He has no known Covid exposure and had a negative Covid test several days ago. Initially, in the Emergency Room his vital signs showed a temperature of 96.5, heart rate 135, blood pressure 81/61, respiratory rate 20, oxygen saturation 93% on room air. He was given some fluids, shortly after he came to the Emergency Room he did say he could have been confused about his medication and took an extra pain pill with his muscle relaxers but he was not sure. After giving him fluids, his heart rate did come down to the 100s. He was also given some meropenem. The Emergency Room doctor did speak to the surgeon on-call from [facility] and after reviewing the x-rays they felt it was not related to his surgery and may be a medication issue. His labs showed WBC of 6,500 with hemoglobin of 10.5, hematocrit 30.8. He had a left shift on his differential. Chemistries showed a sodium of 134, potassium 3.4, chloride 98, BUN 28, creatinine 1.76. His baseline creatinine is about 0.9 to 1.1, lactic acid 1.5, calcium 8.2, creatinine kinase 612, CKMB 4.6. Urinalysis was negative. His urine was sent for a culture. Blood cultures were drawn. Chest x-ray showed poor depth of inspiration with atelectasis in the right base. Shoulder x-ray showed there are postsurgical changes from recent right shoulder arthroplasty. There is gas in the soft tissue around the right shoulder presumably postsurgical but changes from infection with gas-forming organisms are not totally excluded. Chest and thorax CTA shows severely compromised study due to right shoulder arthroplasty, metallic artifact from ORIF of right ribs. Bilateral upper extremities and field of imaging creating streak artifacts as well as suboptimal opacifications of the pulmonary arteries. No thoracic aortic dissection, no significant major pulmonary embolus along the main pulmonary arteries, minimal dependent atelectatic changes at the lung bases. He was placed in observation in the hospital in stable condition. PAST MEDICAL HISTORY: 1. Hypertension. 2. Gastroesophageal reflux disease. 3. Colon cancer in remission. 4. Renal insufficiency. PAST SURGICAL HISTORY: 1. Abdominal surgery times three for colon cancer. 2. Left wrist surgery. 3. Appendectomy. 4. Revision of the right humerus. OUTPATIENT MEDICATIONS: Per the EMR. ALLERGIES: MORPHINE AND PENICILLIN. SOCIAL HISTORY: He is . He lives in [place]. He denies tobacco, ETOH or illicit drug use. REVIEW OF SYSTEMS: GENERAL: Negative for fatigue, fever or weight changes. HEENT: Negative for sinus symptoms, ear pain, vision changes or sore throat. RESPIRATORY: Negative for wheezing, coughing or shortness of breath. CARDIAC: Negative for chest pain, palpitations or tachycardia. GASTROINTESTINAL: Negative for abdominal pain, nausea, vomiting, diarrhea or constipation. GENITOURINARY: Negative for hematuria, dysuria or polyuria. SKIN: Negative for lesions or rashes. MUSCULOSKELETAL: As per the history of present illness. NEUROLOGIC: Positive for weakness and near syncopal episode . Negative for headaches or seizures. PHYSICAL EXAMINATION: VITAL SIGNS: Temperature 97.4, heart rate 97, blood pressure 135/76 respiratory rate 18, O2 saturation 95% on room air. GENERAL: This is a 59 year-old male lying in his hospital bed. He is in no acute distress. HEENT: Normocephalic, atraumatic. Pupils are equal and reactive. Oropharynx is clear. NECK: Supple without mass. RESPIRATORY: Essentially clear to auscultation bilaterally. CHEST: There is equal rise and fall of the chest with inspiration and expiration. CARDIOVASCULAR: Regular rate and rhythm. At times, he is slightly tachycardiac. GASTROINTESTINAL: Abdomen is soft, nondistended, nontender. Bowel sounds are positive. EXTREMITIES: There is a well-healing surgical incision to the right shoulder with sutures in place. There is no erythema or drainage noted. BACK: Exam is deferred. NEUROLOGIC: Awake, alert and oriented times three. Cranial nerves II-XII are grossly intact as tested. SKIN: Warm, pink and dry. LABORATORY: Followup this morning shows WBC of 5.8 with hemoglobin 9.7 and hematocrit 28.6. There is no left shift on his differential. Sodium 132, potassium 4, chloride 100, calcium 7.4, corrected calcium is 8.4. Bilirubin is 1.1. Albumin 2.6. Preliminary blood cultures show no growth. All other labs and films are per the history of present illness and the EMR. IMPRESSION: 1. Dizziness and weakness with near syncope. 2. Dehydration, hypotension and tachycardia due to poor oral intake. 3. Recent operative intervention of right humerus status post surgery four days ago. 4. Hypertension. 5. Gastroesophageal reflux disease. 6. Colon cancer in remission. PLAN: The patient has been placed in observation. We will monitor his neuro status and his vital signs closely. He will be on telemetry as well as pulse ox. He has received 2 liters of fluids in the Emergency Room and will give him judicious fluids overnight. He will have a PPI for ulcer prophylaxis as well as Lovenox for DVT prophylaxis. If there are any neurological changes or syncopal spells, we will need to do a head CT but at this point, his neurological status is intact and there have been no further episodes. I do feel the patient may have taken an extra muscle relaxer or pain medication and had poor oral intake after his discharge from the hospital in [place]. He will need close followup with Dr. Medrano after discharge for further workup if needed. We will continue to monitor him closely and follow as needed. #[id number] [facility]
[2020-08-26] MEDS ORDERED: ACETAMINOPHEN 325 MG TAB PO PRN (22:42)
[2020-08-26] MEDS ORDERED: ONDANSETRON INJ 4 MG/2 ML VIAL IV PRN (22:42)
[2020-08-26] MEDS ORDERED: TEMAZEPAM 15 MG CAP PO PRN (22:55)
[2020-08-26] MEDS ORDERED: IV SET AND CAP CHANGE INJ INJ SCH (23:00)
[2020-08-26] MEDS ORDERED: HYDROcodone 10MG/APAP 325MG 1 EA TAB ONE (23:04)
[2020-08-26] MEDS: HYDROcodone 10MG/APAP 325MG 1 EA TAB PO PRN (23:07)
[2020-08-27] MEDS ORDERED: HYDROmorphone HCL INJ 2 MG/ML VIAL ONE ×2 (00:15→04:11)
[2020-08-27] MEDS: HYDROmorphone HCL INJ 2 MG/ML VIAL IV PRN ×2 (00:19→04:25)
[2020-08-27] MEDS ORDERED: LISINOPRIL 10 MG TAB ONE ×2 (01:31→19:11)
[2020-08-27] MEDS: METOPROLOL TARTRATE 50 MG TAB PO SCH ×3 (01:33→19:07)
[2020-08-27] MEDS: LISINOPRIL 10 MG TAB PO SCH ×2 (01:33→10:47)
[2020-08-27] MEDS ORDERED: HYDROcodone 10MG/APAP 325MG 1 EA TAB ONE (06:02)
[2020-08-27] MEDS: PANTOPRAZOLE SODIUM IV 40 MG VIAL IV SCH (06:10)
[2020-08-27] MEDS: HYDROcodone 10MG/APAP 325MG 1 EA TAB PO PRN ×3 (06:10→20:10)
[2020-08-27] MEDS ORDERED: NON-FORMULARY MEDICATION 1 EA MIS (Metoprolol Tartrate [Lopressor] 100 MG) PO SCH (09:00)
[2020-08-27] MEDS ORDERED: METOPROLOL TARTRATE 50 MG TAB PO ONE (10:48)
[2020-08-27] MEDS ORDERED: ACETAMINOPHEN 325 MG TAB ONE (16:43)
[2020-08-27] MEDS: NON-FORMULARY MEDICATION 1 EA MIS (Lisinopril [Lisinopril] 40 MG) PO SCH ×2 (19:08→20:10)
[2020-08-27] MEDS ORDERED: TEMAZEPAM 15 MG CAP ONE (19:10)
[2020-08-27] MEDS ORDERED: QUEtiapine FUMARATE 100 MG TAB ONE (19:11)
[2020-08-27] MEDS ORDERED: NON-FORMULARY MEDICATION 1 EA MIS (Temazepam [Temazepam] 30 MG) PO SCH (21:00)
[2020-08-27] MEDS ORDERED: QUETIAPINE FUMARATE 300 MG PO SCH (21:00)
[2020-08-28] MEDS ORDERED: PANTOPRAZOLE SODIUM IV 40 MG VIAL ONE (05:00)
[2020-08-28] MEDS ORDERED: HYDROcodone 10MG/APAP 325MG 1 EA TAB ONE (05:18)
[2020-08-28] MEDS: HYDROcodone 10MG/APAP 325MG 1 EA TAB PO PRN (05:20)
[2020-08-28] MEDS: PANTOPRAZOLE SODIUM IV 40 MG VIAL IV SCH (06:15)
[2020-08-28 06:28] VITALS: TEMP 97.6
[2020-08-28] MEDS ORDERED: METOPROLOL TARTRATE 50 MG TAB ONE (07:53)
[2020-08-28] MEDS ORDERED: LISINOPRIL 10 MG TAB ONE (07:53)
[2020-08-28] MEDS: METOPROLOL TARTRATE 50 MG TAB PO SCH (09:17)
[2020-08-28] MEDS ORDERED: LISINOPRIL 10 MG TAB PO SCH (10:00)
[2020-08-28] MEDS: NON-FORMULARY MEDICATION 1 EA MIS (Lisinopril [Lisinopril] 40 MG) PO SCH (10:15)
[2020-08-28 12:39] VITALS: BP 113/87; O2SAT 96
--- NOTE | 2020-08-28 14:55 | DS ---
SUPERVISING PHYSICIAN: Uriel Wells MD ADMISSION DIAGNOSIS: 1. Dizziness and weakness with near syncope. 2. Dehydration with hypotension and tachycardia due to poor oral intake. 3. Recent right humerus fracture repair. 4. Hypertension. 5. Gastroesophageal reflux disease. 6. Colon cancer in remission. DISCHARGE DIAGNOSIS: 1. Dizziness and weakness with near syncope. 2. Dehydration with hypotension and tachycardia due to poor oral intake. 3. Recent right humerus fracture repair. 4. Hypertension. 5. Gastroesophageal reflux disease. 6. Colon cancer in remission. HOSPITAL COURSE: This is a 59-year-old male patient who came to the Emergency Room with dizziness and weakness that began on the morning prior to his arrival in the Emergency Room. He stood up from his chair and nearly collapsed, but there was no loss of consciousness. Apparently, he had surgical revision of the right humerus at [facility] and this was at least two days after the surgery. When he came to the Emergency Room, he was tachycardic with a heart rate of 135 and his blood pressure was actually low at 81/60. Other vital signs were acceptable. In the ER, he was given IV fluid boluses and his heart rate improved as well as his blood pressure. The surgeon rugby union footballer at [facility] was contacted by the ER physician and it was felt this issue was not related to the surgery as the patient did have a normal white count and no fever. Due to this, the patient was admitted for observation. His blood pressure was stable upon discharge at 113/87. It had gotten as high as 139/84. Heart rate 81, respiratory rate 18, temperature 97.6, oxygen saturation 96%. The patient will be discharged in stable condition today. Diet as tolerated. Activity as tolerated. Followup up with his primary care provider as needed. He was instructed to keep up with his p.o. intake as well. #[id number] [facility]
[2020-08-28] MEDS ORDERED: QUEtiapine FUMARATE 100 MG TAB PO SCH (21:00)
[2020-08-28] MEDS ORDERED: TEMAZEPAM 15 MG CAP PO SCH (21:00)
== END 2020-08-28 11:40 | disposition home or self-care (01) ==
LOC: ER 15:59 → MS 22:07
PROVIDERS: ADMIT Nurse Practitioner Acute Care; ATTEND Nurse Practitioner
DX: R42 Dizziness and giddiness (principal); R53.1 Weakness; R55 Syncope and collapse; E86.0 Dehydration; I95.89 Other hypotension; R00.0 Tachycardia, unspecified; I10 Essential (primary) hypertension; K21.9 Gastro-esophageal reflux disease without esophagitis; Z20.828 Contact with and (suspected) exposure to other viral communicable diseases; Z98.890 Other specified postprocedural states; Z96.611 Presence of right artificial shoulder joint; Z85.038 Personal history of other malignant neoplasm of large intestine; Z79.899 Other long term (current) drug therapy; Z88.0 Allergy status to penicillin
CPT/HCPCS: 96365; 96375 ×2; 96376 ×2; J3010; J1170 ×3; J2060; J2405; J7030 ×2; A4216; J2185; J7050; 82553; 80053 ×2; 87086; 36415 ×3; 81001; 85025 ×2; 82550; 87040 ×2; 85730; 85610; 84484; 83605 ×2; 71045; 73030; 71275; 94760 ×3; 99285; 93005; G0378; 86328